=== PATIENT | female | born 2000 | race Asian ===

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

== ENCOUNTER 2018-12-29 17:18 | Emergency (ER) | payer OTHER ==
--- NOTE | 2018-12-29 19:49 | ED ---
Head Injury - HPI Summary HPI Summary: 18-year-old female presents with head injury on Sunday. She states she fell down the stairs on Sunday. She fell onto her nose. She states she did have some dizziness that resolved. No loss consciousness. She admits to occasional nausea but no vomiting. She denies any photophobia or change in vision. Admits to pain on the right side of her face. No pain with eye movement. Headache is not severe. States her headache has improved since this morning. Denies any difficulties concentrating. - History Of Current Complaint Chief Complaint: EDHeadInjury Stated Complaint: FALL HEADACE Time Seen by Provider: 12/29/18 18:49 Pain Intensity: 5 - Allergies/Home Medications Allergies/Adverse Reactions: Allergies Allergy/AdvReac Type Severity Reaction Status Date / Time No Known Allergies Allergy Verified 06/20/17 03:00 PMH/Surg Hx/FS Hx/Imm Hx Endocrine/Hematology History: Denies: Hx Diabetes Cardiovascular History: Denies: Hx Hypertension Sensory History: Denies: Hx Contacts or Glasses, Hx Hearing Aid Opthamlomology History: Denies: Hx Contacts or Glasses Infectious Disease History: No Infectious Disease History: Denies: Traveled Outside the [place] in Last 30 Days - Family History Known Family History: Negative: Hypertension - Social History Alcohol Use: Rare Substance Use Type: Reports: None Hx Tobacco Use: No Smoking Status (MU): Never Smoked Tobacco Review of Systems Negative: Fever Negative: Blurred Vision, Diplopia Positive: Other - nasal pain Negative: Chest Pain Negative: Shortness Of Breath Positive: Nausea. Negative: Vomiting Positive: Headache All Other Systems Reviewed And Are Negative: Yes Physical Exam Triage Information Reviewed: Yes Vital Signs On Initial Exam: Initial Vitals Temp Pulse Resp BP Pulse Ox 98.2 F 65 16 121/71 98 12/29/18 17:38 12/29/18 17:38 12/29/18 17:38 12/29/18 17:38 12/29/18 17:38 Vital Signs Reviewed: Yes Appearance: Positive: Well-Appearing Skin: Positive: Warm, Dry Head/Face: Positive: Normal Head/Face Inspection Eyes: Positive: Normal, EOMI, PRANEETH, Conjunctiva Clear ENT: Positive: Pharynx normal, TMs normal, Other - ecchymosis noted to nose, nares appears midline, tenderness over right lower orbit Neck: Positive: Other: - nontender neck, full ROM neck Respiratory/Lung Sounds: Positive: Clear to Auscultation, Breath Sounds Present Cardiovascular: Positive: Normal, RRR Musculoskeletal: Positive: Normal Neurological: Positive: Normal Psychiatric: Positive: Normal Procedures - Sedation Patient Received Moderate/Deep Sedation with Procedure: No Diagnostics - Vital Signs Vital Signs Temp Pulse Resp BP Pulse Ox 12/29/18 17:38 98.2 F 65 16 121/71 98 - Laboratory Lab Statement: Any lab studies that have been ordered have been reviewed, and results considered in the medical decision making process. - CT maxillaryfacial CT Interpretation Completed By: Radiologist Summary of CT Findings: IMPRESSION: Probable small nondisplaced fracture left nasal bone. Head Injury Course/Dx Course Of Treatment: 18-year-old female presents with head injury on Sunday. She states she fell down the stairs on Sunday. She fell onto her nose. She states she did have some dizziness that resolved. No loss consciousness. She admits to occasional nausea but no vomiting. She denies any photophobia or change in vision. Admits to pain on the right side of her face. No pain with eye movement. Headache is not severe. States her headache has improved since this morning. Denies any difficulties concentrating. On exam has a normal neuro exam. Has contusion noted to the nares. Nares are midline. Has tenderness over right orbit. Extraocular movements intact. according to [place] CT rules no head imaging needed. CT maxillofacial shows nasal fracture. gave referral to ENT. gave concussion precautions. will have follow up with [facility]. patient understand and agrees with plan. - Diagnoses Differential Diagnosis/HQI/PQRI: Concussion Without LOC, Contusion, Intracranial Bleed, Nasal Fracture Provider Diagnoses: Head injury, Nasal fracture Discharge ED - Sign-Out/Discharge Documenting (check all that apply): Patient Departure - Discharge Plan Condition: Good Disposition: HOME Patient Education Materials: Nasal Fracture (ED), Head Injury (ED) Forms: *School Release Referrals: [facility] - J[facility] [Primary Care Provider] - Farnk Dwyer MD [Medical Doctor] - Additional Instructions: Place ice on area as needed Take Tylenol or ibuprofen for headache every 6 hours Modify activities as tolerated Follow up with jaxon within 5 days a referral was given to ENT as needed Return to ED if develop vomiting, severe headache, change in behavior, or any new or worsening symptoms - Billing Disposition and Condition Condition: GOOD Disposition: Home - Attestation Statements Provider Attestation: I was available for consultation for this patient. I did not evaluate the patient or participate in any medical decision making or disposition decisions unless I am specifically named in the chart as having consulted on the patient. If I have consulted on the patient, please see my own ED note on the patient encounter. Archie Lee MD
[2018-12-29 21:11] VITALS: BP 99/66
== END 2018-12-29 21:10 | disposition home or self-care (01) ==
LOC: ED 17:18
DX: S02.2XXA Fracture of nasal bones, initial encounter for closed fracture (principal); S09.90XA Unspecified injury of head, initial encounter; W10.9XXA Fall (on) (from) unspecified stairs and steps, initial encounter; Y92.9 Unspecified place or not applicable
CPT/HCPCS: 70486; 99282